=== PATIENT | male | born 1990 | race Caucasian/White ===

== ENCOUNTER 2022-12-15 14:45 | Emergency (ER) | payer MEDICAID ==
[~2022-12-15] VITALS: Ht 177.8 cm; Wt 97.0 kg
[2022-12-15 21:12] VITALS: BP 148/82
== END 2022-12-15 22:00 | disposition home or self-care (01) ==
LOC: ER 14:46
DX: Z00.00 Encounter for general adult medical examination without abnormal findings (principal); F15.90 Other stimulant use, unspecified, uncomplicated; Z56.0 Unemployment, unspecified; Z79.899 Other long term (current) drug therapy
CPT/HCPCS: 99283

== ENCOUNTER 2024-10-24 14:26 | Emergency (ER) | payer MEDICAID ==
[~2024-10-24] VITALS: Ht 175.3 cm; Wt 85.5 kg
[2024-10-24] MEDS ORDERED: BUPR1FIL7 SL (15:26)
[2024-10-24 15:38] VITALS: BP 119/87; PULSE 60; RESP 16; TEMP 98; O2SAT 99
== END 2024-10-24 15:46 | disposition home or self-care (01) ==
LOC: ER 14:27
DX: Z76.0 Encounter for issue of repeat prescription (principal); F15.90 Other stimulant use, unspecified, uncomplicated; Z79.899 Other long term (current) drug therapy
CPT/HCPCS: 99281

== ENCOUNTER 2024-12-12 18:52 | Emergency (ER) | payer MEDICAID ==
[~2024-12-12] VITALS: Ht 177.8 cm; Wt 87.3 kg
[~2024-12-12 18:52] MED LIST: BUPR1FIL7 SL
[2024-12-12 18:53] VITALS: BP 147/81; PULSE 56; RESP 18; O2SAT 94
[2024-12-12] MEDS: LIDOcaine/PRILOcaine 5gm cream TP ONE (19:52)
[2024-12-12] MEDS: TETanus/Pertussis (Acell)/Diphther VAC/PF (Tdap-Adult) 0.5ml syringe IMVAC ONE (19:58)
[2024-12-12] MEDS ORDERED: SILV50CR31 TOP (20:05)
[2024-12-12] MEDS ORDERED: HYDR-3965 PO (20:05)
[2024-12-12 20:09] VITALS: TEMP 98.5
== END 2024-12-12 20:15 | disposition home or self-care (01) ==
LOC: ER 18:52
DX: T23.252A Burn of second degree of left palm, initial encounter (principal); T23.251A Burn of second degree of right palm, initial encounter; T23.152A Burn of first degree of left palm, initial encounter; T23.151A Burn of first degree of right palm, initial encounter; T31.0 Burns involving less than 10% of body surface; F15.90 Other stimulant use, unspecified, uncomplicated; Z79.899 Other long term (current) drug therapy; Z56.0 Unemployment, unspecified; X12.XXXA Contact with other hot fluids, initial encounter; Y93.89 Activity, other specified; Y92.89 Other specified places as the place of occurrence of the external cause; Y99.8 Other external cause status
CPT/HCPCS: 16020; 90471; 90715; 99283

== ENCOUNTER 2025-01-10 12:36 | Emergency (ER) | payer MEDICAID ==
[~2025-01-10] VITALS: Ht 175.3 cm; Wt 83.7 kg
[~2025-01-10 12:36] MED LIST changes: +HYDR-3965 PO
[2025-01-10 12:40] VITALS: BP 109/67; PULSE 79; RESP 16; TEMP 98.3; O2SAT 98
== END 2025-01-10 14:16 | disposition left against medical advice (07) ==
LOC: ER 12:37
DX: R22.0 Localized swelling, mass and lump, head (principal); Z53.21 Procedure and treatment not carried out due to patient leaving prior to being seen by health care provider

== ENCOUNTER 2025-04-23 09:06 | Emergency (ER) | payer MEDICAID ==
[~2025-04-23] VITALS: Ht 177.8 cm; Wt 80.8 kg
[~2025-04-23 09:06] MED LIST changes: -HYDR-3965 PO
[2025-04-23 09:11] VITALS: BP 155/85; PULSE 79; RESP 18; TEMP 98.7; O2SAT 98
--- NOTE | 2025-04-23 09:39 | Physician Documentation ---
History of Present Illness ~ Chief Complaint: Medical Clearance Stated Complaint: MED CLEARANCE FOR DETOX Time Seen by MD: 09:15 Primary Medical Doctor: No PMD HPI This 34-year-old male history of methamphetamine abuse who presents requesting medical clearance to enter a detox program for said methamphetamine abuse, patient reports feeling otherwise well though does report a minor headache, patient reports last use of methamphetamine yesterday. Patient reports that he has no other drug abuse history including opioids or alcohol. Tetanus within 5 years?: Yes Medication Reconciliation Allergies: Coded Allergies: No Known Allergies (Unverified , 10/24/24) Scheduled Buprenorphine HCl/Naloxone HCl (Suboxone 12 mg-3 mg Sl Film), 1 STRIP SL DAILY Past Medical History Past Medical History: *PSYCH* Drug Use: methamphetamine Occupation: unemployed Review of Systems ROS Need for medical clearance and headache as stated above in the HPI, otherwise all systems are reviewed and negative. Physical Exam Vital Signs: Temperature: 98.7, Source: Temporal, Heart Rate: 79, Respiratory Rate: 18, BP: 155/85, Pulse Oximetry: 98, Weight: 80.750 Oxygen Flow Rate: 0 Physical Exam VITALS: Reviewed and as above. GENERAL: Alert, nontoxic appearing, no apparent distress. HEENT: Normocephalic, atraumatic, PERRL, EOMI, moist mucosa, no erythema, uvula midline RESPIRATORY: Lungs clear, normal breath sounds, no respiratory distress. CHEST: No accessory muscle use, no retractions CV: Regular rate, rhythm, no murmur GI: Soft, non-tender, bowels sounds present, no rebound, guarding, or rigidity BACK: No CVA tenderness, no midline tenderness MUSCULOSKELETAL No deformities SKIN: Warm and dry, no rash NEURO: Oriented x4 PSYCH: Normal mood and affect, no agitation Progress Results/Orders Results/Orders Completed Orders - YESICA STEVENS SPEEDBOAT OPERATOR Acetaminophen 325mg Tablet (Tylenol Tabl (04/23/25 09:35) Vital Signs 04/23/25 09:11 Temp 98.7 Pulse 79 Resp 18 B/P (MAP) 155/85 Pulse Ox 98 O2 Flow Rate 0 Medical Decision Making Findings This 34-year-old male presented requesting medical clearance to enter a rehabilitation program for methamphetamine abuse, it was reassuring patient reported no other substance abuse to place him at risk for withdrawal including no alcohol abuse or opioid abuse. Patient reported only minor headache consistent with previous headache symptoms otherwise reported no other medical symptoms or concerns. Patient is well-appearing and at low risk for withdrawal symptoms and is medically stable for discharge and outpatient follow up including participation in rehabilitation program. Differential Dx:Considerations: Include: Intoxication-Alcohol, Intoxication- Other drug, Personality disorder, Substance abuse disorder, Alcohol withdrawl syndrom Departure Disposition: HOME / SELF CARE / HOMELESS Impression: Primary Impression: General medical exam Additional Impression: Headache Qualified Codes: R51.9 - Headache, unspecified Condition: Improved Discharge Instructions: Medical Screening Exam Additional Instructions: You are medically cleared to enter your rehab program. Please follow up with your primary care provider or [facility] in the next few days. Please return to the emergency department for any new or worsening concerning symptoms. Referrals: NO PRIMARY CARE PROVIDER (PCP) Education Educated: Patient Educated regarding: diagnosis, treatment, prognosis, need for follow up Signature Scribe Signature: No scribe Attestation: The note accurately reflects work and decisions made by me.JOSH Bennett 04/23/25 20:20 YESICA STEVENS Apr 23, 2025 09:39
[2025-04-23] MEDS: acetaminophen 325mg tablet PO ONE (10:00)
[2025-04-24] MEDS ORDERED: HYDR-3686 PO (21:13)
== END 2025-04-23 10:03 | disposition home or self-care (01) ==
LOC: ER 09:07
DX: R51.9 Headache, unspecified (principal); F15.90 Other stimulant use, unspecified, uncomplicated
CPT/HCPCS: 99282

== ENCOUNTER 2025-04-24 20:27 | Emergency (ER) | payer MEDICAID ==
[~2025-04-24] VITALS: Ht 177.8 cm; Wt 80.3 kg
[2025-04-24 20:56] VITALS: BP 150/79; PULSE 112; RESP 18; O2SAT 98
[2025-04-24] MEDS ORDERED: HYDR-3686 PO (21:13)
--- NOTE | 2025-04-24 21:14 | Physician Documentation ---
History of Present Illness ~ Chief Complaint: Anxiety Stated Complaint: Time Seen by MD: 21:10 Primary Medical Doctor: No PMD HPI 34 year-old male history of amphetamine use has stopped using meth approximately 2 days ago is waiting to get into [facility] on Sunday. Patient is having anxiety and difficulty with sleep. Patient denies any cardiac or respiratory history. No other acute concerns Medication Reconciliation Allergies: Coded Allergies: No Known Allergies (Unverified , 04/24/25) Scheduled Buprenorphine HCl/Naloxone HCl (Suboxone 12 mg-3 mg Sl Film), 1 STRIP SL DAILY Past Medical History Past Medical History: No Pertinent History, *PSYCH* Drug Use: methamphetamine Occupation: unemployed Review of Systems All Other Systems at this time: Reviewed and Negative Constitutional: Reports: see HPI Physical Exam Vital Signs: Temperature: 97.7, Source: Temporal, Heart Rate: 112, Respiratory Rate: 18, BP: 150/79, Pulse Oximetry: 98, Weight: 80.300 Oxygen Flow Rate: 0 General Appearance: alert, WD/WN, no apparent distress Head: normal inspection Respiratory: lungs clear, normal breath sounds, no respiratory distress Chest: no accessory muscle use, chest non-tender Cardiovascular: normal peripheral pulses, regular rate, rhythm, no edema Progress Results/Orders Results/Orders Vital Signs 04/24/25 20:56 Temp 97.7 Pulse 112 Resp 18 B/P (MAP) 150/79 Pulse Ox 98 O2 Flow Rate 0 Medical Decision Making Findings History of meth use awaiting recovery program on Sunday Departure Time of Disposition: 21:11 Disposition: 01 HOME / SELF CARE / HOMELESS Impression: Primary Impression: Anxiety Additional Impression: Amphetamine abuse Condition: Stable Discharge Instructions: Generalized Anxiety Disorder, Adult Additional Instructions: Maintain arrangements with [facility]. Take medication as prescribed for anxiety and insomnia follow-up as needed Referrals: NO PRIMARY CARE PROVIDER (PCP) Prescriptions Hydroxyzine Hcl* (Atarax*) 25 Mg Tablet 1 TAB PO Q8H for anxiety for 10 Days, #30 TAB Prov: COOKIE SALDAÑA FOREPART ROUNDER 04/24/25 Education Educated: Patient Educated regarding: diagnosis, treatment, need for follow up Signature Scribe Signature: The note accurately reflects work and decisions made by me.Cookie MORENO 04/24/25 21:14 Attestation: The note accurately reflects work and decisions made by me.Cookie Simon [employer]ICE [employer]ICE 04/24/25 21:14 COOKIE SALDAÑA NP Apr 24, 2025 21:14
[2025-04-24 21:34] VITALS: TEMP 97.7
[2025-04-24] MEDS: hydrOXYzine 25 MG tablet PO ONE (21:40)
== END 2025-04-24 21:41 | disposition home or self-care (01) ==
LOC: ER 20:28
DX: F41.9 Anxiety disorder, unspecified (principal); F15.10 Other stimulant abuse, uncomplicated; Z56.0 Unemployment, unspecified
CPT/HCPCS: 99283; Q0177

== ENCOUNTER 2025-04-26 14:23 | Emergency (ER) | payer MEDICAID ==
[~2025-04-26] VITALS: Ht 177.8 cm; Wt 86.4 kg
[~2025-04-26 14:23] MED LIST changes: +HYDR-3686 PO
[2025-04-26 14:38] VITALS: BP 158/97; PULSE 105; RESP 18; TEMP 98.4; O2SAT 99
--- NOTE | 2025-04-26 14:53 | Physician Documentation ---
History of Present Illness ~ Chief Complaint: Chest Pain Stated Complaint: MED CLEARANCE Time Seen by MD: 16:44 OK to notify your PCP?: Yes Primary Medical Doctor: No PMD Source: patient Mode of Arrival: POV Exam Limitations: no limitations HPI 34-year-old male who is here for medical clearance to go to a rehab program. He last used methamphetamine this morning. He has been experiencing left-sided chest pain and left arm numbness with shortness of breath and dizziness since this morning. Denies any cardiac history. Patient denies any shortness of breath or abdominal pain or nausea, vomiting, diarrhea. Patient has no other complaints at this time. Medication Reconciliation Allergies: Coded Allergies: No Known Allergies (Unverified , 04/24/25) Scheduled Buprenorphine HCl/Naloxone HCl (Suboxone 12 mg-3 mg Sl Film), 1 STRIP SL DAILY Hydroxyzine Hcl* (Atarax*), 1 TAB PO Q8H Past Medical History Past Medical History: No Pertinent History, *PSYCH* Drug Use: methamphetamine Occupation: unemployed Review of Systems All Other Systems at this time: Reviewed and Negative Constitutional: Denies: chills, fever, weakness Eyes: Denies: pain, blurred vision ENT: Denies: ear pain, nose pain, throat pain, mouth pain Respiratory: Denies: cough, shortness of breath Cardiovascular: Denies: chest pain, palpitations Gastrointestinal: Denies: abdominal pain, nausea, vomiting Genitourinary: Denies: burning, dysuria Male Genitalia: Denies: penile discharge, testicular pain Neurological: Denies: headache, dizziness Musculoskeletal: Denies: pain, swelling Integumentary: Denies: rash, lesions Allergic/Immunologic: Denies: hives, itching Hematologic/Lymphatic: Denies: no symptoms reported Psychiatric: Denies: depression, anxiety Physical Exam Vital Signs: RN Vital Signs have been reviewed: Yes, Temperature: 98.4, Heart Rate: 105, Respiratory Rate: 18, BP: 158/97, Pulse Oximetry: 99, Weight: 86.360 Oxygen Flow Rate: 0 Pulse Oximetry Reflects: adequate oxygenation Physical Exam General: Alert, no distress. HEENT: No injection, moist mucous membranes. Neck: Full range of motion. Respiratory: No respiratory distress, equal chest rise and fall. Chest: No accessory muscle use. Cardiovascular: Regular rate and rhythm. Gastrointestinal: Nondistended. Extremities: Normal range of motion, no deformity. Neurologic: Oriented x4. Psychiatric: Normal mood and affect. Skin: Normal color, warm and dry. Progress Results/Orders Results/Orders Medications Received in ER Medications (Trade) Dose Ordered Sig/Isidoro Route PRN Reason Start Time Stop Time Status Last Admin Dose Admin (K-DUR tablet) 40 meq ONCE STAT PO 04/26/25 16:42 04/26/25 16:45 DC 04/26/25 16:54 40 MEQ Vital Signs 04/26/25 14:38 Temp 98.4 Pulse 105 Resp 18 B/P (MAP) 158/97 Pulse Ox 99 O2 Flow Rate 0 Laboratory Tests Test 04/26/25 15:05 White Blood Count 8.0 Red Blood Count 5.04 Hemoglobin 15.5 Hematocrit 44.3 Mean Corpuscular Volume 88.0 Mean Corpuscular Hemoglobin 30.8 Mean Corpuscular Hemoglobin Concent 35.0 Red Cell Distribution Width 12.9 Platelet Count 317 Mean Platelet Volume 6.8 L Neutrophils (%) (Auto) 50.6 Lymphocytes (%) (Auto) 39.4 Monocytes (%) (Auto) 6.3 Eosinophils (%) (Auto) 2.8 Basophils (%) (Auto) 0.9 Neutrophils # (Auto) 4.1 Lymphocytes # (Auto) 3.2 Monocytes # (Auto) 0.5 Eosinophils # (Auto) 0.2 Basophils # (Auto) 0.1 CBC Comment Sodium Level 140 Potassium Level 3.0 *L Chloride Level 104 Carbon Dioxide Level 28.5 Anion Gap 8 Blood Urea Nitrogen 8 Creatinine 1.04 Estimated GFR/1.73 m2 83 BUN/Creatinine Ratio 7.7 L Glucose Level 165 H Calcium Level 8.9 Troponin I High Sensitivity 5 Pro-B-Type Natriuretic Peptide < 30 Albumin 4.1 Chemistry Comments EKG/XRAY/CT/US/VASC/MRI EKG : Additional Comment EKG interpreted by myself today shows regular normal sinus rhythm, regular rate at 98 beats per minute, no ST segment elevation or sign of ischemia, no axis deviation. Chest X-Ray : Additional Comments Chest x-ray interpreted by myself today shows no large infiltrate, no large effusion, normal mediastinum. DIAGNOSTIC RADIOLOGY Patient: OXANA POWELL Medical Record: [id number] [facility] : 1990, Age: 34 Sex: Male Location: ER Patient Status: [facility] ER Service Date/Time: 04/26/25/ 1452 Ordering Physician: ENRICO PEOPLES Exam: CHEST,SINGLE VIEW CHEST RADIOGRAPH Indication: CP Technique: Single frontal view of the chest was obtained Comparison: None FINDINGS: Lines and Tubes: None Lungs: No focal consolidation. Pleura: No effusion. No pneumothorax. Cardiomediastinal contours: Unremarkable Bones: No acute osseous abnormality. IMPRESSION: No acute cardiopulmonary disease. Electronically Signed by:ANGELICA SCHULTZ DO Date & Time: 04/26/25 1501 Dictated by: ANGELICA SCHULTZ DO Dictation date and time: 04/26/251449 Primary Care Provider: NO PRIMARY CARE PROVIDER cc: ENRICO PEOPLES FUEL OIL TRUCK DRIVER ~ Heart Score: Heart Score Response (Comments) Value History Slightly Suspicious 0 EKG Normal 0 Age <45 0 Risk Factors 1 or 2 risk factors 1 Troponin Normal limit 0 Total 1 Medical Decision Making Findings 34-year-old male who is here for medical clearance to go to a rehab program. He last used methamphetamine this morning. He has been experiencing left-sided chest pain and left arm numbness with shortness of breath and dizziness since this morning. Denies any cardiac history. Patient denies any shortness of breath or abdominal pain or nausea, vomiting, diarrhea. Patient has no other complaints at this time. Patient's lab work was largely unremarkable with normal troponins, potassium was low at 3.0. Patient was recommended to follow up with primary care for referral to neurologist for nerve conduction study of bilateral upper extremities. Patient will be sent prescription for potassium tablets to be taken as prescribed. Patient is currently medically cleared to enter drug rehab program. Patient will return to ED with any worsening, concerning or changing symptoms. Departure Disposition: HOME / SELF CARE / HOMELESS Impression: Primary Impression: Chest pain Qualified Codes: R07.9 - Chest pain, unspecified Additional Impressions: Hypokalemia General medical exam Condition: Improved Discharge Instructions: Nonspecific Chest Pain, Adult Additional Instructions: Patient's lab work was largely unremarkable with normal troponins, potassium was low at 3.0. Patient was recommended to follow up with primary care for referral to neurologist for nerve conduction study of bilateral upper extremities. Patient will be sent prescription for potassium tablets to be taken as presc ribed. Patient is currently medically cleared to enter drug rehab program. Patient will return to ED with any worsening, concerning or changing symptoms. Referrals: NO PRIMARY CARE PROVIDER (PCP) Prescriptions Potassium Chloride (Klor-Con 8) 8 Meq Tablet.er 1 TAB PO DAILY for 30 Days, #30 TAB 0 Refills Prov: LIZZETH HODGSON 04/26/25 Additional Comment Medical Screen Exam This patient recieved a medical screening examination. After reviewing the individual's medical complaints with presenting symptoms and performing an appropriate physical examination, it was determined that no immediate life- threatening emergency medical condition is present. This individual is also not a women having contractions. Signature Scribe Signature: No scribe Attestation: No scribe ENRICO PEOPLES Apr 26, 2025 14:52 LIZZETH HODGSON Apr 26, 2025 17:06
--- NOTE | 2025-04-26 15:01 | ELECTROCARDIOGRAPH REPORT ---
[facility] Test Date: 2025-04-26 Test Time: 14:56:58 Pat Name: OXANA POWELL Department: [facility]- Patient ID: [facility]-[id number] Room: Gender: M [employer]: : 1990 Requested By: ENRICO PEOPLES Order Number: [id number] Reading MD: Measurements Intervals [place] Rate: 98 P: 57 WI: 141 QRS: -73 QRSD: 84 T: 45 QT: 328 QTc: 419 Interpretive Statements Sinus rhythm Probable left atrial enlargement LAD, consider left anterior fascicular block RSR' in V1 or V2, right VCD or RVH Please click the below link to view image of tracing.
--- NOTE | 2025-04-26 15:03 | RADIOLOGY REPORT ---
CHEST RADIOGRAPH Indication: CP Technique: Single frontal view of the chest was obtained Comparison: None FINDINGS: Lines and Tubes: None Lungs: No focal consolidation. Pleura: No effusion. No pneumothorax. Cardiomediastinal contours: Unremarkable Bones: No acute osseous abnormality. IMPRESSION: No acute cardiopulmonary disease.
[2025-04-26 15:20] LABS: BASOPHILS # (AUTO) 0.1 X10'3 (0-0.2); BASOPHILS % (AUTO) 0.9 % (0-1); EOSINOPHILS # (AUTO) 0.2 X10'3 (0-0.9); EOSINOPHILS % (AUTO) 2.8 % (0-6); HEMATOCRIT 44.3 % (42.0-52.0); HEMOGLOBIN 15.5 g/dl (14.0-17.9); LYMPHOCYTES # (AUTO) 3.2 X10'3 (1.1-4.8); LYMPHOCYTES % (AUTO) 39.4 % (21-51); MEAN CORPUSCULAR HEMOGLOBIN 30.8 PG (27.0-31.0); MEAN PLATELET VOLUME 6.8 FL (7.4-10.4); MONOCYTES # (AUTO) 0.5 X10'3 (0-0.9); MONOCYTES % (AUTO) 6.3 % (2-12); NEUTROPHILS # (AUTO) 4.1 X10'3 (1.8-7.7); NEUTROPHILS % (AUTO) 50.6 % (42-75); PLATELET COUNT 317 X10'3 (140-440); RED BLOOD COUNT 5.04 X10'6 (4.70-6.10); RED CELL DISTRIBUTION WIDTH 12.9 % (11.5-14.5)
[2025-04-26 15:39] LABS: ALBUMIN 4.1 G/DL (3.4-5.0); ANION GAP 8 (8-16); BLOOD UREA NITROGEN 8 MG/DL (7-18); BUN/CREATININE RATIO 7.7 (10.0-20.0); CALCIUM 8.9 MG/DL (8.5-10.1); CHLORIDE 104 MMOL/L (99-107); CREATININE 1.04 MG/DL (0.60-1.10); GLUCOSE 165 MG/DL (70-104); PRO BRAIN NATRIURETIC PEPTIDE < 30 PG/ML (0-125); SODIUM 140 MMOL/L (135-145); TOTAL CARBON DIOXIDE 28.5 MMOL/L (24-32); eCRCL 105 ML/MIN; eGFR 83 ML/MIN
[2025-04-26] MEDS: potassium Cl 20 mEq SR tablet PO STA (16:54)
[2025-04-26] MEDS ORDERED: POTA8TAB69 PO (17:06)
== END 2025-04-26 17:02 | disposition left against medical advice (07) ==
LOC: ER 14:23
DX: R07.89 Other chest pain (principal); E87.6 Hypokalemia; R06.02 Shortness of breath; R42 Dizziness and giddiness; F15.90 Other stimulant use, unspecified, uncomplicated
CPT/HCPCS: 36415; 71045; 80048; 83880; 84484; 85025; 93005; 99285

== ENCOUNTER 2025-04-28 08:36 | Emergency (ER) | payer MEDICAID ==
[~2025-04-28] VITALS: Ht 172.7 cm; Wt 79.5 kg
[~2025-04-28 08:36] MED LIST changes: +POTA8TAB69 PO
[2025-04-28 08:43] VITALS: BP 163/90; PULSE 97; RESP 18; O2SAT 98
--- NOTE | 2025-04-28 09:28 | Physician Documentation ---
History of Present Illness ~ Chief Complaint: Mental Health Eval Stated Complaint: MED CLEARANCE Time Seen by MD: 08:52 Primary Medical Doctor: No PMD HPI Patient is seen today With complaints of severe anxiety. Patient states he is trying to come down off of methamphetamines and cocaine but states he is having severe anxiety currently. Patient also states he needs a health clearance to get into a rehab program. Patient denies any chest pain, shortness of breath, abdominal pain, nausea, vomiting, diarrhea. Patient has no new or other concern or complaint at this time. Medication Reconciliation Allergies: Coded Allergies: No Known Allergies (Unverified , 04/28/25) Scheduled Buprenorphine HCl/Naloxone HCl (Suboxone 12 mg-3 mg Sl Film), 1 STRIP SL DAILY Hydroxyzine Hcl* (Atarax*), 1 TAB PO Q8H Potassium Chloride (Klor-Con 8), 1 TAB PO DAILY Past Medical History Past Medical History: No Pertinent History, *PSYCH* Drug Use: methamphetamine Occupation: unemployed Review of Systems Constitutional: Denies: chills, fever, weakness Eyes: Denies: pain, blurred vision ENT: Denies: ear pain, nose pain, throat pain, mouth pain Respiratory: Denies: cough, shortness of breath Cardiovascular: Denies: chest pain, palpitations Gastrointestinal: Denies: abdominal pain, nausea, vomiting Genitourinary: Denies: burning, dysuria Male Genitalia: Denies: penile discharge, testicular pain Neurological: Denies: headache, dizziness Musculoskeletal: Denies: pain, swelling Integumentary: Denies: rash, lesions Allergic/Immunologic: Denies: hives, itching Hematologic/Lymphatic: Denies: no symptoms reported Psychiatric: Denies: depression, anxiety Physical Exam Vital Signs: Temperature: 97.9, Source: Temporal, Heart Rate: 97, Respiratory Rate: 18, BP: 163/90, Pulse Oximetry: 98, Weight: 79.500 Physical Exam General: Awake and Alert, no acute distress. HEENT: Conjunctiva pink, Sclera clear, Mucus Membranes moist. Neck: Supple without masses and tenderness. Resp: Unlabored. Lungs clear to auscultation bilaterally. Heart: Regular Rate and rhythm, normal S1 and S2 without murmur, rub or gallop. Abdomen: Soft and non tender no organomegaly Extremities: No cyanosis,clubbing or edema. Skin: Warm and Dry. Progress Results/Orders Results/Orders Completed Orders - LIZZETH HODGSON Olanzapine Im (Zyprexa I.M. Im On (04/28/25 09:34) Vital Signs 04/28/25 08:43 Temp 97.9 Pulse 97 Resp 18 B/P (MAP) 163/90 Pulse Ox 98 Medical Decision Making Findings Patient is seen today With complaints of severe anxiety. Patient states he is trying to come down off of methamphetamines and cocaine but states he is having severe anxiety currently. Patient also states he needs a health clearance to get into a rehab program. Patient denies any chest pain, shortness of breath, abdominal pain, nausea, vomiting, diarrhea. Patient has no new or other concern or complaint at this time. Patient was given a dose of Zyprexa 10 mg IM and also substance use navigator co unseling appointment was ordered. Patient was able to speak with the substance use navigator and patient is medically cleared for entrance into a rehab program. Patient will return to ED with any worsening, concerning or changing symptoms. Departure Disposition: HOME / SELF CARE / HOMELESS Impression: Primary Impression: Amphetamine abuse Additional Impression: Anxiety Condition: Improved Discharge Instructions: Medical Screening Exam Additional Instructions: Patient was given a dose of Zyprexa 10 mg IM and also substance use navigator counseling appointment was ordered. Patient was able to speak with the substance use navigator and patient is medically cleared for entrance into a rehab program. Patient will return to ED with any worsening, concerning or changing symptoms. Referrals: NO PRIMARY CARE PROVIDER (PCP) Prescriptions Hydroxyzine Hcl* (Atarax*) 25 Mg Tablet 1-2 TAB PO Q12H for anxiety for 15 Days, #60 TAB Prov: LIZZETH HODGSON 04/28/25 Signature Scribe Signature: No scribe Attestation: No scribe LIZZETH HODGSON Apr 28, 2025 09:28
[2025-04-28] MEDS ORDERED: HYDR-3686 PO (10:19)
[2025-04-28] MEDS: OLANZapine **IM** 10 mg inj. IM STA (10:20)
[2025-04-28 10:46] VITALS: TEMP 97.9
== END 2025-04-28 10:48 | disposition home or self-care (01) ==
LOC: ER 08:37
DX: F41.9 Anxiety disorder, unspecified (principal); F15.10 Other stimulant abuse, uncomplicated
CPT/HCPCS: 96372; 99283; J3490

== ENCOUNTER 2025-05-02 08:20 | Emergency (ER) | payer MEDICAID ==
[~2025-05-02] VITALS: Ht 177.8 cm; Wt 80.0 kg
[2025-05-02 08:26] VITALS: BP 173/95; TEMP 98.2
[2025-05-02] MEDS ORDERED: HYDR50TA65 PO (09:25)
--- NOTE | 2025-05-02 09:25 | Physician Documentation ---
History of Present Illness ~ Chief Complaint: Anxiety Stated Complaint: MH Time Seen by MD: 09:04 OK to notify your PCP?: Yes Primary Medical Doctor: No PMD Source: patient Mode of Arrival: POV Exam Limitations: no limitations HPI 34-year-old male who arrives with his significant other due to anxiety. He reports that he feels like people are out to kill him. He is hoping he can get a prescription for something to help calm him down. He is planning on going to [facility] on Sunday as I would as when they have an opening for him. He tried to get in there today but he states there are no openings. He wants to go to [facility] due to history of drug abuse. He last used methamphetamines last night. He states I know that the methamphetamines are just not good for me because when I use them it causes these symptoms. Patient's significant other who accompanies him states I do not think there was anything in it because I did the same stuff that he did and I am fine. Patient denies suicidal or homicidal ideations. Medication Reconciliation Allergies: Coded Allergies: No Known Allergies (Unverified , 04/28/25) Scheduled Buprenorphine HCl/Naloxone HCl (Suboxone 12 mg-3 mg Sl Film), 1 STRIP SL DAILY Hydroxyzine HCl (Hydroxyzine HCl), 1 TAB PO DAILY Hydroxyzine Hcl* (Atarax*), 1 TAB PO Q8H Hydroxyzine Hcl* (Atarax*), 1-2 TAB PO Q12H Potassium Chloride (Klor-Con 8), 1 TAB PO DAILY Past Medical History Past Medical History: No Pertinent History, *PSYCH* Drug Use: methamphetamine Occupation: unemployed Review of Systems All Other Systems at this time: Reviewed and Negative Physical Exam Vital Signs: Temperature: 98.2, Source: Temporal, Heart Rate: 82, Respiratory Rate: 18, BP: 173/95, Pulse Oximetry: 99, Weight: 80.000 Physical Exam General Appearance: Alert, WD/WN. NAD. HEENT: NCAT, PERRL, EOMI. Neck: Supple, trachea midline. Cardiovascular: RRR. No m/r/g. Lungs: CTAB. Breathing unlabored Extremities: Normal inspection. No edema. Skin: Warm/dry, normal color Neurological: Alert and oriented x4, normal gait. Psychiatric: Affect congruent with mood. Progress Results/Orders Results/Orders Vital Signs 05/02/25 05/02/25 08:26 09:32 Temp 98.2 Pulse 82 75 Resp 18 18 B/P (MAP) 173/95 Pulse Ox 99 98 Medical Decision Making Differential Dx:Considerations: Include: Alcohol abuse, Anxiety, Bipolar disorder, Conversion disorder, Depression, Encephaloathy, Homicidal, Panic disorder, Personality disorder, Schizophrenia, Substance abuse, Suicidal Departure Time of Disposition: 09:23 Disposition: 01 HOME / SELF CARE / HOMELESS Impression: Primary Impression: Anxiety Additional Impression: Amphetamine abuse Condition: Stable Discharge Instructions: Panic Attack Additional Instructions: As we discussed you will need to return tomorrow for clearance for [facility] because the clearance is only good for 24 hours. I did send a prescription for some medicine to help with the anxiety until Sunday. Return to the ER if you feel any suicidal or homicidal ideations or any other concerning symptoms. Referrals: NO PRIMARY CARE PROVIDER (PCP) Prescriptions Hydroxyzine HCl (Hydroxyzine HCl) 50 Mg Tablet 1 TAB PO DAILY for anxiety for 3 Days, #3 TAB 0 Refills Prov: NARINDER BARTH 05/02/25 Education Educated: Patient Educated regarding: diagnosis, treatment, need for follow up Signature Scribe Signature: x Attestation: NARINDER Garcia May 02, 2025 09:25
[2025-05-02 09:32] VITALS: PULSE 75; RESP 18; O2SAT 98
== END 2025-05-02 09:34 | disposition home or self-care (01) ==
LOC: ER 08:21
DX: F41.9 Anxiety disorder, unspecified (principal); F15.10 Other stimulant abuse, uncomplicated
CPT/HCPCS: 99283

== ENCOUNTER 2025-05-03 13:48 | Emergency (ER) | payer MEDICAID ==
[~2025-05-03] VITALS: Ht 177.8 cm; Wt 80.5 kg
[~2025-05-03 13:48] MED LIST changes: +HYDR50TA65 PO
--- NOTE | 2025-05-03 14:03 | Physician Documentation ---
History of Present Illness ~ Chief Complaint: Medical Clearance Stated Complaint: MEDICAL CLEARANCE Time Seen by MD: 15:36 Primary Medical Doctor: No PMD HPI 34-year-old male presents to the ED with a complaint of alcoholism and chronic drug use. Says he primarily uses methamphetamine and alcohol. Requesting medical clearance to go to [facility]. States he last use was yesterday Tetanus within 5 years?: Yes Medication Reconciliation Allergies: Coded Allergies: No Known Allergies (Unverified , 04/28/25) Scheduled Buprenorphine HCl/Naloxone HCl (Suboxone 12 mg-3 mg Sl Film), 1 STRIP SL DAILY Hydroxyzine HCl (Hydroxyzine HCl), 1 TAB PO DAILY Hydroxyzine Hcl* (Atarax*), 1 TAB PO Q8H Hydroxyzine Hcl* (Atarax*), 1-2 TAB PO Q12H Potassium Chloride (Klor-Con 8), 1 TAB PO DAILY Past Medical History Past Medical History: No Pertinent History, *PSYCH* Drug Use: methamphetamine Occupation: unemployed Review of Systems All Other Systems at this time: Reviewed and Negative ROS As stated above in the HPI, otherwise all systems are reviewed and negative. Physical Exam Vital Signs: Temperature: 98.7, Source: Temporal, Heart Rate: 107, Respiratory Rate: 15, BP: 108/75, Pulse Oximetry: 100, Weight: 80.500 Physical Exam General: Alert, no apparent distress. HEENT: PERRL, EOMI, no injection, moist mucous membranes. Neck: Full range of motion. Respiratory: Lungs clear, no respiratory distress. Chest: No accessory muscle use. Cardiovascular: Regular rate and rhythm, no murmurs. Gastrointestinal: Soft, nontender, nondistended. Bowels sounds present. Extremities: Normal range of motion, no deformity. Neurologic: Oriented x4. Psychiatric: Normal mood and affect. Skin: Normal color, warm and dry. No edema, no ecchymosis. Progress Results/Orders Results/Orders Vital Signs 05/03/25 05/03/25 13:57 16:33 Temp 98.7 98.7 Pulse 107 90 Resp 15 17 B/P (MAP) 108/75 124/82 Pulse Ox 100 99 Medical Decision Making Findings Patient for detox. Does not present with a an acute intoxication. Meets criteria for alcohol and drug recovery Differential Dx:Considerations: Include: Intoxication-Alcohol, Intoxication- Other drug, Personality disorder, Substance abuse disorder, Acute delirium, Closed head injury, Cervical spine injury, Skull fracture, Fracture(s), Abrasion, Contusion, Foreign body, Hematoma, Laceration, Alcohol withdrawl syndrom, Encephalopathy, Hepatitis, Medically stable, Other Departure Disposition: 01 HOME / SELF CARE / HOMELESS Impression: Primary Impression: Amphetamine abuse Additional Impression: General medical exam Condition: Improved Discharge Instructions: Medical Screening Exam Additional Instructions: medically cleared for [facility] Referrals: NO PRIMARY CARE PROVIDER (PCP) Education Educated: Patient Signature Scribe Signature: h Attestation: Scribed for Garret Hester Certified Ethical Hacker by Garret Simon NP . 05/03/25 23:01 GARRET HESTER NP May 03, 2025 14:03
[2025-05-03 16:33] VITALS: BP 124/82; PULSE 90; RESP 17; TEMP 98.7; O2SAT 99
== END 2025-05-03 16:34 | disposition home or self-care (01) ==
LOC: ER 13:49
DX: F15.10 Other stimulant abuse, uncomplicated (principal); F10.20 Alcohol dependence, uncomplicated
CPT/HCPCS: 99281; 99282